=== PATIENT | male | born 1995 ===

== ENCOUNTER 2020-05-04 21:30 | Emergency (ER) | payer SELFPAY ==
[2020-05-04 21:36] VITALS: BP 127/60; PULSE 67; RESP 18; TEMP 35.8; O2SAT 100
== END 2020-05-04 21:36 | disposition left against medical advice (07) ==
DX: Z53.21 Procedure and treatment not carried out due to patient leaving prior to being seen by health care provider (principal)
CPT/HCPCS: 99199